=== PATIENT | female | born 1965 | race Caucasian/White ===

== ENCOUNTER → 2018-02-25 | Day surgery (SDC) | payer BC ==
--- NOTE | 2018-02-25 13:42 | OP ---
DATE OF OPERATION: 02/25/2018 PREOPERATIVE DIAGNOSIS: Right breast mass 6 o'clock 5 cm from the nipple. POSTOPERATIVE DIAGNOSIS: Right breast mass 6 o'clock 5 cm from the nipple. PROCEDURE: Right ultrasound-guided core biopsy and clip placement. ANESTHESIA: Local. ATTENDING SURGEON: Abdirahman Morales MD ESTIMATED BLOOD LOSS: Minimal. COMPLICATIONS: None. DESCRIPTION OF PROCEDURE: The patient was made aware of the risks and benefits of the procedure and consented. She was placed in a supine position. Under sterile conditions with 1% lidocaine for local anesthesia, a small debbie was made in the skin. Using a 10-gauge suction biopsy device via lateral approach under ultrasound guidance, multiple cores were obtained and submitted to Pathology. Likewise, under ultrasound guidance, a bowtie clip was placed into the biopsy region well tolerated by patient. Steri-Strips and a sterile bandage was applied. I will contact her with results. ABDIRAHMAN MORALES M.D. [id number]
--- NOTE | 2018-02-26 13:13 | PATH ---
Surgical Pathology Report Patient Name: HUGH CARDENAS [facility]. Rec. #: [id number] /Age/Gender: 1965 (Age: 52) / F Account: [id number] Location: [facility] Taken: 02/25/2018 Received: 02/25/2018 Reported: 02/26/2018 Physicians: Abdirahman Morales M.D. Specimen(s) Received RIGHT BREAST CORE BIOPSY 6 N5 Clinical History Nonpalpable lesion Ultrasound findings: Highly suspicious/malignant Final Diagnosis BREAST, RIGHT, 6:00, 5 CM FN, CORE BIOPSY: BENIGN BREAST TISSUE WITH DENSE STROMAL FIBROSIS AND MICROCYSTS. Electronically Signed Mel Fernandez M.D. Gross Description Received in formalin labeled "right breast biopsy 6:00, 5 cmfn," are 5 phillip-yellow, cylindrical portions of fibroadipose tissue ranging from 0.9-1.8 cm in length and averaging 0.2 cm in diameter. The specimens are submitted in toto in one cassette. Time to formalin fixation: Less than one minute Total formalin fixation time: Approximately 6 hours. /02/25/2018 saudi02/25/2018
== END | disposition home or self-care (01) ==
LOC: FRADUS-SUR 10:32
PROVIDERS: ATTEND Surgery Surgical Oncology
PROC: 0HBT3ZX Excision of Right Breast, Percutaneous Approach, Diagnostic (ICD-10-PCS; principal; 2018-02-25)
DX: N60.11 Diffuse cystic mastopathy of right breast (principal); N60.31 Fibrosclerosis of right breast; N63.10 Unspecified lump in the right breast, unspecified quadrant
CPT/HCPCS: 19083; 88305-TC